=== PATIENT | male | born 1950 | race Caucasian/White ===

== ENCOUNTER 2018-03-16 11:58 | Outpatient (REF) | payer MEDICARE, BC, SELFPAY ==
[2018-03-16 22:48] LABS: Cholesterol 233 mg/dL (50-200); HDL Cholesterol 92 mg/dL (40-60); LDL CHOLESTEROL 129 mg/dL (<100); Triglyceride 80 mg/dL (30-150)
[2018-03-18 11:26] LABS: Hepatitis C Ab w Rflx HCV PCR Negative (NEGAT)
== END 2018-03-16 12:18 ==
LOC: NCHCN 11:58
PROVIDERS: PCP Nurse Practitioner Family; Visit Provider Nurse Practitioner Family
DX: E78.5 Hyperlipidemia, unspecified (principal); G43.109 Migraine with aura, not intractable, without status migrainosus; Z11.59 Encounter for screening for other viral diseases
CPT/HCPCS: 80061; 83721; 86803

== ENCOUNTER 2018-03-25 01:05 | Outpatient (CLI) | payer MEDICARE, BC, SELFPAY ==
--- NOTE | 2018-03-25 07:07 | DI.US_ITS ---
SYMPTOM/DIAGNOSIS: CARDIOVASCULAR SCREENING, Z13.6, ? AAA AORTA ULTRASOUND: There is no evidence of an aortic aneurysm. The maximal AP diameter of the aorta is 2.6 cm. proximally. The maximal transverse diameter of the aorta is 2.4 cm. The AP diameter of the right iliac is 1.1 cm. and of the left iliac is 1.3 cm. SUMMARY: No evidence of an abdominal aortic aneurysm.
== END 2018-03-25 01:25 ==
PROVIDERS: PCP Nurse Practitioner Family; Visit Provider Nurse Practitioner Family
DX: Z13.6 Encounter for screening for cardiovascular disorders (principal); E78.5 Hyperlipidemia, unspecified
CPT/HCPCS: 76706

== ENCOUNTER 2020-03-22 10:20 | Outpatient (REF) | payer MEDICARE, BC, SELFPAY ==
[2020-03-22 14:07] LABS: ALT 33 U/L (16-63); AST 24 U/L (15-37); Albumin 4.1 g/dL (3.4-5.0); Alkaline Phosphatase 61 U/L (46-116); Anion Gap 7.5 mmol/L (3-11); BUN 20 mg/dL (7-18); Bilirubin, Total 0.8 mg/dL (0.2-1.0); CO2 30.5 mmol/L (21.0-32.0); CREATININE 1.07 mg/dL (0.70-1.30); Calcium 8.9 mg/dL (8.5-10.1); Calculated LDL 125 mg/dL (<100); Chloride 105 mmol/L (98-107); Cholesterol 225 mg/dL (<200); Glucose 90 mg/dL (74-106); HDL Cholesterol 79 mg/dL (40-60); Potassium 4.1 mmol/L (3.5-5.1); Sodium 143 mmol/L (136-145); Total Protein 6.8 g/dL (6.4-8.2); Triglyceride 106 mg/dL (<150)
[2020-03-23 04:49] LABS: Vitamin D 25 Total 58.8 ng/ml (30-100)
== END 2020-03-22 10:40 ==
LOC: NCHCN 10:20
PROVIDERS: PCP Nurse Practitioner Family; Visit Provider Nurse Practitioner Family
DX: E55.9 Vitamin D deficiency, unspecified (principal); E78.5 Hyperlipidemia, unspecified
CPT/HCPCS: 80053; 80061; 82306

== ENCOUNTER 2021-04-17 13:07 | Outpatient (REF) | payer MEDICARE, BC, SELFPAY ==
[2021-04-17 15:06] LABS: Calculated LDL 163 mg/dL (<100); Cholesterol 254 mg/dL (<200); HDL Cholesterol 73 mg/dL (40-60); Triglyceride 90 mg/dL (<150)
[2021-04-18 18:20] LABS: PSA, Screening 8.6 ng/mL (0.0-4.5)
== END 2021-04-17 13:08 | disposition home or self-care (01) ==
LOC: NCHCN 13:07
PROVIDERS: PCP Nurse Practitioner Family; Visit Provider Nurse Practitioner Family
DX: E78.5 Hyperlipidemia, unspecified (principal); Z00.00 Encounter for general adult medical examination without abnormal findings; Z12.5 Encounter for screening for malignant neoplasm of prostate
CPT/HCPCS: 80061; 84153

== ENCOUNTER 2021-04-30 01:07 | Outpatient (CLI) | payer MEDICARE, BC, SELFPAY ==
--- NOTE | 2021-04-30 | DI.US_ITS ---
Exam(s) US BREAST LT LIMITED EXAM: US BREAST LT LIMITED CLINICAL HISTORY: SOFT TISSUE MASS M79.9 TECHNIQUE: Ultrasound left breast performed using standard protocol. COMPARISON: No exams were available for comparison FINDINGS: The area of the palpable abnormality in the retroareolar region was scanned. There is an ovoid hypoe choic area measuring 2.6 x 0.6 by 2.0 cm which shows some vascularity. There is no shadowing. There is no evidence of a cyst.. IMPRESSION: Hypoechoic lesion in the subareolar region could represent focal gynecomastia versus posttraumatic in duration versus mass. Clinical correlation recommended. Mammography should be considered for furthe r evaluation. BI-RADS Category 0 - Assessment Incomplete: Need additional imaging evaluation DATA REPOSITORY:
== END 2021-04-30 01:27 ==
PROVIDERS: PCP Nurse Practitioner Family; Visit Provider Nurse Practitioner Family
DX: R92.8 Other abnormal and inconclusive findings on diagnostic imaging of breast (principal); M79.89 Other specified soft tissue disorders; N64.89 Other specified disorders of breast
CPT/HCPCS: 76642

== ENCOUNTER → 2021-05-04 09:15 | Outpatient (BNVA) | payer MEDICARE, BC, SELFPAY | PROVIDERS: PCP Nurse Practitioner Family; Referring Provider Nurse Practitioner Family; Visit Provider Surgery | DX: N63.20 Unspecified lump in the left breast, unspecified quadrant (principal) | CPT/HCPCS: 99203 ==

== ENCOUNTER 2021-05-07 04:13 | Outpatient (CLI) | payer MEDICARE, BC, SELFPAY ==
[2021-05-07 09:36] LABS: Source Nasal/Nares
[2021-05-07 12:56] LABS: COVID-19 PCR Negative (Negative)
== END 2021-05-07 04:14 | disposition home or self-care (01) ==
LOC: LBO 04:13
PROVIDERS: PCP Nurse Practitioner Family; Visit Provider Surgery
DX: Z20.822 Contact with and (suspected) exposure to COVID-19 (principal); Z01.818 Encounter for other preprocedural examination
CPT/HCPCS: 87635; U0005

== ENCOUNTER 2021-05-09 07:28 | Day surgery (SDC) | payer MEDICARE, BC, SELFPAY ==
--- NOTE | 2021-05-09 06:34 | W.PM.OP ---
Date of service: 05/09/21 Time of Service: : Operative Note Operative Note DATE OF PROCEDURE: 05/09/21 PRE-OP DIAGNOSIS: Left Breast mass POST-OP DIAGNOSIS: same PROCEDURE: Excisional Left breast biopsy SURGEON: Carmen Garcia SETUP OPERATOR: Joanne Gong ANESTHESIA TYPE: Local By Surgeon and General:No Airway Refer to Anesthesia Record PATHOLOGY: other (Breast mass, single suture medial and double suture superior) COMPLICATIONS: None Patient was transported to: same day Patient's condition: stable Indications: Mr. Xiong is a pleasant 70-year-old gentleman with a left breast mass which is hypoechoic but has some vascularity.? On ultrasound it measures 2.6 x 0.6 x 2 cm.? On exam it is well-circumscribed and mobile.? I suspect this is going to be an area of gynecomastia versus a fibroadenoma.? Due to the vascularity I do feel that further testing with either core needle biopsy or excisional biopsy is warranted.? I did discuss with Fortino and his the core needle biopsy versus the excisional biopsy.? If we do an excisional biopsy he may require a second surgery if the pathology comes back as breast cancer.? I would then need to do a sentinel lymph node biopsy and potentially remove a little bit more tissue.? After discussing both options with him and his and reviewing the risks and benefits of both a core needle biopsy versus an excisional biopsy he would like to proceed with excisional biopsy. Risks, benefits, complications were reviewed with him.? Complications include but are not limited to bleeding, infection, injury injury to underlying muscle, need for further surgery, wound dehiscence, and adverse reactions to the medications.? His questions were answered to his satisfaction and he wished to proceed.? No guarantees were given or implied. Proceed with breast excisional biopsy in the operating room. Findings: retroareolar lesion- specimen size 5 x 5.5 cm Procedure Description: After informed consent was obtained from the patient and he was taken back to the operating room and placed in the supine position on the operating room table. The patient was then placed under General sedation. At this point a timeout was done. The patient's name, date of , allergies to medications, procedure to be done, site of surgery and antibiotic prophylaxis were all reviewed. Fire risk was assessed. The Breast was prepped with Chlorhexidine and exparel mixed with 0.25% Bupivocaine was injected into the dermis and subcutaneous tissue. A 2.5 cm incision was made with a 15 blade. Dissection was done with cautery around the lesion and down to the pectoralis muscle. Once the breast tissue was completely dissected it was marked with a single suture at medial and a double suture at superior. The specimen was placed in formalin for pathology. The cavity was irrigated with some normal saline and dried. Small areas of bleeding were identified and these were stopped using cautery. The cavity was inspected again and no bleeding was noted. The incision was then closed with 3-0 Vicryl interrupted subdermal sutures. The dermis was closed with a continuous 4-0 Vicryl suture. The skin was cleaned and dried and skin affix was applied. Once the skin affix was dry a pressure dressing was applied. The patient was slowly woken up and taken back to [facility] in stable condition. Sponge, instruments and needles were correct at the end of the case x2. There were no immediate complications.
--- NOTE | 2021-05-09 06:37 | W.PM.DSUDISC ---
Discharge Plan Disposition Patient Disposition: HOME Condition: Good Discharge Details Reason For Visit: Left Breast mass Attending Provider: Carmen Garcia Primary Care Provider: Shavonne Turner Home Meds and New Rx's Prescriptions: New tramadol 50 mg tablet 50 mg PO Q6H PRNQty: 14 0RF Continued multivitamin 1 EACH capsule 1 ea PO DAILY 0RF Vitamin D3 Complete 1 EACH tablet 1 ea PO DAILY 0RF lutein 20 mg Capsule 20 mg PO DAILY 0RF vvfqctn-rcsa-lzvit-oreg-capryl 100 mg-150 mg- 50 mg-150 mg Capsule 1 cap PO QDAY 0RF Discharge Instructions Additional Instructions: Activity at Home after surgery: 1. As tolerated Diet, Nutrition, & wound healin. Avoid alcohol until after you are recovered from your surgery 2. Make sure to eat plenty of lean protein (meat, fish, eggs, cottage cheese, beans) 3. Eat a variety of fruits and vegetables. Eat plenty of high fiber foods to avoid constipation. 4. Drink plenty of liquids to stay hydrated and avoid constipation Pain Medications: 1. Tylenol 650mg every 6 hours as needed and Ibuprofen 600 mg every 6 hours as needed. You may alternate between the 2 medications every 3 hours 2. If a narcotic has been prescribed take as directed only for breakthrough pain For Constipation: 1. Take Milk of Magnesia or MiraLax as needed for constipation Other: 1. You may shower daily. Do not scrub the incisions 2. Do not soak the incisions for 1 week 3. You may alternate ice and heat as needed for pain and swelling Wound Care: 1. remove dressing in 24 hours 2. Keep the incisions clean and dry Please call our office if you develop: 1. Fevers >101.5 2. Nausea or Vomiting 3. Worsening pain 4. Redness and thick discharge from the wounds If after hours please call the Hospital at and ask to speak to the on-call surgeon Referrals: Carmen Garcia MD [ [facility] STAFF PHYSICIAN] - 05/25/21 10:30 am Activity:: Activity as Tolerated Remove Dressings/Wound Care:: 24 hours Shower/Bathe:: 24 hours Diet:: As Tolerated Discharge Orders Discharge Orders: Discharge Order (Routine); Ordered 05/09/21 Ordered By: Carmen Garcia
[2021-05-09 07:47] VITALS: BP 119/69; PULSE 72; RESP 16; TEMP 36.5; O2SAT 99
[2021-05-09] MEDS: Acetaminophen 500 MG TAB 1000 MG PO (08:14)
[2021-05-09] MEDS: Lactated Ringers 1,000 ML 80 ML IV (08:15)
[2021-05-09] MEDS: Celecoxib 200 MG CAP PO (08:15)
--- NOTE | 2021-05-09 08:24 | W.ANESPRE ---
General Info Date of Service Date Performed: 05/09/21 Height: 5 ft 10 in Weight: 59.8 kg Body Mass Index (BMI): 18.9 Surgical Procedure: Operation Date: 05/09/21 09:25 Proposed Procedure Side Surgeon p Excisional Biopsy of Lt Breast Mass Left Carmen Garcia MD Meds Allergies and Home Medications Allergies Allergy/AdvReac Type Severity Reaction Status Date / Time No Known Allergies Allergy Verified 05/09/21 07:47 Home Medication Medication Instructions Recorded Vitamin D3 Complete 18 mg iron-800 1 ea PO DAILY NS 08/18/17 mcg-150 mg tablet (pp-lb-ogxb-FA-herbal cmplx#[id number]) multivitamin 1 ea PO DAILY NS 08/18/17 lutein 20 mg capsule 20 mg PO DAILY 05/07/21 tumeric 100 mg-macey 150 mg-olive 1 cap PO QDAY 05/09/21 50 mg-oreg 150 mg-caprylate capsule Current Visit Medications: Current Medications Generic Name Dose Route Start Last Admin Trade Name Freq PRN Reason Stop Dose Admin Acetaminophen 1,000 mg 05/09/21 06:00 05/09/21 08:14 Acetaminophen 500 Mg Tab PO 05/09/21 23:59 1,000 mg PREOP LISA Administration Celecoxib 200 mg 05/09/21 06:00 05/09/21 08:15 Celecoxib 200 Mg Cap PO 05/09/21 23:59 200 mg PREOP LISA Administration Ringer's Solution 1,000 mls @ 80 mls/hr 05/09/21 06:00 05/09/21 08:15 IV 05/31/21 23:59 80 mls/hr INFUSION LISA Administration Cefazolin Sodium/Dextrose 2 gm in 50 mls @ 100 mls/hr 05/09/21 06:00 Ancef Duplex IVPB 05/09/21 23:59 PREOP LISA Ondansetron HCl 4 mg/ Sodium 52 mls @ 200 mls/hr 05/09/21 06:38 Chloride IVPB Q6H PRN PRN IV Miscellaneous Supplies 1 each 05/09/21 06:00 Iv Access IV 05/31/21 23:59 DIRECTED LISA Ibuprofen 600 mg 05/09/21 06:38 Ibuprofen 600 Mg Tab PO Q6H PRN PRN Pain Sodium Chloride 0 ml 05/09/21 06:00 Normal Saline Flush 10 Ml Syr IV 05/31/21 23:59 PRN PRN Sodium Chloride 0 ml 05/09/21 06:00 Normal Saline 10 Ml Vial IJ 05/31/21 23:59 DIRECTED PRN Sterile Water 0 ml 05/09/21 06:00 Water,Injection,Sterile 10 Ml Vial IJ 05/31/21 23:59 DIRECTED PRN PFSH Active Problems Active Problems: Problem Status Onset Code Breast mass N63.0 Medical History Medical History Back pain Bruxism Dyspepsia Hyperlipidemia Hyperplastic colon polyp Hyperplastic polyp of large intestine Leg cramps Migraine headache with aura Nightmares Osteoarthritis of hands, bilateral Plantar wart, right foot Sinus congestion Vitamin D insufficiency Surgical History Surgical History Colonoscopy - MAC (08/22/17) H/O vasectomy Tonsillectomy and adenoidectomy Tobacco Smoking/Tobacco Use Status: Never Alcohol Alcohol Intake: current Alcohol intake frequency: 0-2 drinks per day Substance Use Substance use: Never Substance use type: does not use Vital Signs and Lab Results Vital Signs Most Recent Vital Signs in EMR: Most Recent Vital Signs Temp Pulse Resp BP Pulse Ox 36.5 C 72 16 119/69 99 05/09/21 07:47 05/09/21 07:47 05/09/21 07:47 05/09/21 07:47 05/09/21 07:47 Lab Results Blood Type / Crossmatch: No Data to Display Complete Blood Count: No Data to Display Complete Metabolic Panel: No Data to Display Liver Function Panel: No Data to Display Coagulation Panel: No Data to Display Cardiac Panel: No Data to Display Arterial Blood Gas: No Data to Display Venous Blood Gas: No Data to Display Pancreas Panel: No Data to Display Thyroid Panel: No Data to Display Infectious Disease: Coronavirus (COVID-19)(PCR) Negative (Negative) 05/07/21 08:58 05/07/21 Coronavirus 2019 Source Nasal/Nares 05/07/21 08:58 05/07/21 Blood Cultures: No Data to Display Toxicology Panel: No Data to Display Anesthesia Assessment and Plan Anesthesia History Personal History: No History of Anesthesia Complications Family History: No Family History of Anesthesia Complications Exercise Tolerance Exercise Tolerance: Metabolic Equivalents>4 Pertinent Negatives Pertinent Negatives: No Symptoms of GERD, No Major Cardiovascular Symptoms or Complaints, No Major Pulmonary Symptoms or Complaints and No History of CVA/TIA Cardiac & Pulmonary Exam Cardiac Exam: Normal S1/S2 Heart Sounds Pulmonary Exam: Clear Bilateral Breath Sounds Implantable Cardiac Device Does patient have a Pacemaker or an ICD?: No Airway Exam Known Difficult Airway: No Mallampati Class: 4 Mouth Opening: Normal (> 3cm) Thyromental Distance: Greater than 3 cm Neck Range of Motion: Full ROM Neck Circumference: Normal Teeth Condition: Normal Dentition ASA Classification ASA Score: ASA 2 Emergency Case?: No NPO Status NPO Status: NPO Clears >2 hours, Solids >8 hours Anesthesia Plan Resuscitation Status: Full Code Anesthesia Technique: General Anesthesia Airway Planned: Natural Airway Monitors Used: Standard Monitors
[2021-05-09 09:30] VITALS: BMI 18.9
[2021-05-09] MEDS: ceFAZolin 2 GM/50 ML BAG IVPB (09:52)
--- NOTE | 2021-05-09 10:12 | BREAST_PTH ---
PATIENT: Fortino Noguera LOC: [facility] U#:[id number] AGE/SX: 70/M ROOM: RE05/09/[address]: Carmen Garcia MD : 1950 BED: DIS: 05/09/2021 SPEC #: [id number] RECD: 05/09/21 12:43 STATUS: MIKE REJenni #: [id number] CELE: 05/09/21 10:[address]: Carmen Garcia DEPT: Surgical Specimen RECD BY: Cynthia Norman ENTERED: 05/09/21 12:44 SP TYPE: Breast OTHR DR: Shavonne Turner Tissues: 1 - BREAST INCISION/EXCISION Procedures: GROSS AND MICRO LEVEL 5 Comments: [id number]
[2021-05-09] MEDS: Bupivacaine 0.25% Pres-Free 30 ML VIAL (10:17)
[2021-05-09] MEDS: Bupivacaine LIPOSOME/PF 133 MG/10 ML VIAL IJ (10:17)
[2021-05-09 10:49] VITALS: BP 121/80; PULSE 68; RESP 16; TEMP 36.1; O2SAT 97
--- NOTE | 2021-05-09 10:59 | W.ANESPOSTOP ---
Postoperative Evaluation Date, Time and Location Date Performed: 05/09/21 Time Performed: 10:59 Patient Location: Day Surgery Unit Vital Signs Most Recent Imported Vital Signs: Most Recent Vital Signs Temp Pulse Resp BP Pulse Ox 36.1 C L 68 16 121/80 97 05/09/21 10:49 05/09/21 10:49 05/09/21 10:49 05/09/21 10:49 05/09/21 10:49 Pain Score Most Recent Pain Score: Most Recent Pain Score Pain Level 0 05/09/21 10:49 Assessment Mental Status: Awake (Alert & Oriented to Patient Baseline) Airway and Respiratory Function: Patent airway with normal (patient baseline) respiratory exam Cardiovascular Function: Hemodynamically Stable Hydration Status: Adequately Hydrated Nausea & Vomiting: No Nausea or Vomiting Pain: Pt. Denies Any Pain Peripheral Nerve Block: Patient did not receive a nerve block
[2021-05-09 11:16] VITALS: BP 110/62; PULSE 58; RESP 16; TEMP 36.3; O2SAT 99
== END 2021-05-09 11:48 | disposition home or self-care (01) ==
LOC: SUR 07:29
PROVIDERS: PCP Nurse Practitioner Family; Visit Provider Surgery
PROC: (CPT 19120; principal; 2021-05-09 09:15)
DX: E78.5 Hyperlipidemia, unspecified; E55.9 Vitamin D deficiency, unspecified; F51.5 Nightmare disorder; M19.042 Primary osteoarthritis, left hand; M19.041 Primary osteoarthritis, right hand; Z86.010 Personal history of colon polyps; N62 Hypertrophy of breast
CPT/HCPCS: 19301; 88307; J0690; J1100; J1885; J2001; J2250; J2405

== ENCOUNTER → 2021-05-25 10:33 | Outpatient (BNVA) | payer MEDICARE, BC, SELFPAY | PROVIDERS: PCP Nurse Practitioner Family; Referring Provider Nurse Practitioner Family; Visit Provider Surgery | DX: Z90.12 Acquired absence of left breast and nipple (principal); Z48.817 Encounter for surgical aftercare following surgery on the skin and subcutaneous tissue ==

== ENCOUNTER 2021-07-11 15:06 | Outpatient (REF) | payer MEDICARE, BC, SELFPAY ==
[2021-07-11 22:41] LABS: PSA, Diagnostic 8.7 ng/mL (<=4.5)
== END 2021-07-11 15:07 | disposition home or self-care (01) ==
LOC: NCHCN 15:06
PROVIDERS: PCP Nurse Practitioner Family; Visit Provider Nurse Practitioner Family
DX: R97.20 Elevated prostate specific antigen [PSA] (principal)
CPT/HCPCS: 84153

== ENCOUNTER → 2021-07-16 12:51 | Outpatient (BNVA) | payer MEDICARE, BC, SELFPAY | PROVIDERS: PCP Nurse Practitioner Family; Referring Provider Nurse Practitioner Family; Visit Provider Nurse Practitioner Gerontology | DX: N40.2 Nodular prostate without lower urinary tract symptoms (principal); R97.20 Elevated prostate specific antigen [PSA] | CPT/HCPCS: 99215 ==

== ENCOUNTER → 2021-08-03 00:27 | Outpatient (CLI) | payer MEDICARE, BC, SELFPAY ==
--- NOTE | 2021-08-03 07:30 | DI.US_ITS ---
Exam(s) US PROSTATE BIOPSY EXAM: prostate nodule/elevated PSA,n40.2 COMPARISON: No exams were available for comparison TECHNIQUE: Ultrasound performed using standard protocol. FINDINGS: Sonography was provided for Dr. Knox during the performance of a ultrasound-guided transrectal pros strickland biopsy. Please refer to the procedure report for complete details. DATA REPOSITORY:
--- NOTE | 2021-08-03 09:15 | PROST_PTH ---
PATIENT: Fortino Noguera LOC: [facility] U#:[id number] AGE/SX: 74/M ROOM: RE08/03/[address]: Ria Leach DNP : 1950 BED: DIS: SPEC #: [id number] RECD: 08/03/21 12:37 STATUS: MIKE BENAVIDES #: [id number] CELE: 08/03/21 09:[address]: Ria Leach DEPT: Surgical Specimen RECD BY: Cynthia Norman ENTERED: 08/03/21 12:39 SP TYPE: PROST OTHR DR: Shavonne Turner Tissues: 1 - PROSTATE NEEDLE BIOPSY 2 - PROSTATE NEEDLE BIOPSY 3 - PROSTATE NEEDLE BIOPSY 4 - PROSTATE NEEDLE BIOPSY 5 - PROSTATE NEEDLE BIOPSY 6 - PROSTATE NEEDLE BIOPSY 7 - PROSTATE NEEDLE BIOPSY 8 - PROSTATE NEEDLE BIOPSY 9 - PROSTATE NEEDLE BIOPSY 10 - PROSTATE NEEDLE BIOPSY 11 - PROSTATE NEEDLE BIOPSY 12 - PROSTATE NEEDLE BIOPSY Procedures: GROSS AND MICRO LEVEL 4 Comments: [id number]
--- NOTE | 2021-08-03 09:29 | W.PM.OP ---
Date of service: 08/03/21 Time of Service: 08:29 Operative Note Operative Note DATE OF PROCEDURE: 08/03/21 PRE-OP DIAGNOSIS: Elevated PSA POST-OP DIAGNOSIS: same Abnormal prostate exam PROCEDURE: Transrectal ultrasound guided biopsy of the prostate SURGEON: Venu Knox ANESTHESIA TYPE: Local By Surgeon Refer to Anesthesia Record ESTIMATED BLOOD LOSS: 5 PATHOLOGY: other (12 laterally directed prostate biopsies) Implants: None Indications: This is a 70-year-old gentleman who was identified as having an elevated PSA of 8.7 and an abnormal prostate exam. We found a firm area on the left base of the prostate. He presents for ultrasound-guided biopsy Findings: Prostate volume 35 cc Procedure Description: The patient was given an antibiotic and mechanical bowel prep. He was brought to the radiology suite on 08/03/2021. Transrectal imaging of the prostate was performed using a variable megahertz transducer. The prostate was imaged in transverse and longitudinal planes. The prostatic volume was calculated at 35 cc. There were a few calcifications present in the transition zone. No specific hypoechoic areas were found in the peripheral zone. A periprostatic nerve block was then performed using 1% Xylocaine without epinephrine. A total of 12 laterally directed biopsies were taken. Each biopsy was labeled and sent to pathology for permanent section. The patient tolerated the procedure well with no complications.
== END ==
PROVIDERS: PCP Nurse Practitioner Family; Visit Provider Nurse Practitioner Gerontology
DX: C61 Malignant neoplasm of prostate (principal); R97.20 Elevated prostate specific antigen [PSA]
CPT/HCPCS: 55700; 76942; 88305

== ENCOUNTER → 2021-08-17 11:01 | Outpatient (BNVA) | payer MEDICARE, BC, SELFPAY | PROVIDERS: PCP Nurse Practitioner Family; Referring Provider Nurse Practitioner Family; Visit Provider Urology | DX: C61 Malignant neoplasm of prostate (principal) | CPT/HCPCS: 99215 ==

== ENCOUNTER → 2021-08-31 00:11 | Outpatient (CLI) | payer MEDICARE, BC, SELFPAY ==
--- NOTE | 2021-08-31 07:15 | DI.NM_ITS ---
Exam(s) NM BONE SCAN WHOLE BODY GRP EXAM: NM BONE SCAN WHOLE BODY GRP CLINICAL HISTORY: r/o mets,prostate ca,c61. TECHNIQUE: Injected Dose: 26 mCi Tc-99m MDP Delayed Images: 2-3 hours. COMPARISON: No exams were available for comparison FINDINGS: There is no abnormal uptake evident in the spine spinal column and rib cages nor in the sternum nor i n the shoulder girdles nor in the skull. Mild symmetrical increased uptake seen both sides pelvis is doubtful metastatic disease, given the symmetrical distribution which appears to be at the anterior superior aspect of both acetabuli. There is some uptake seen in the left wrist at the 1st carpometacarpal joint, consistent with degener ative change. Similar findings are not seen in the right wrist. Mild uptake in the knees is probabl y degenerative; less likely metastatic. There is no abnormal uptake in the feet. IMPRESSION: 1. Findings as above which are doubtful for metastatic osseous disease, given the distribution. Josefa raymond, recommend plain films of the pelvis. DATA REPOSITORY:
== END ==
PROVIDERS: PCP Nurse Practitioner Family; Visit Provider Urology
DX: C61 Malignant neoplasm of prostate (principal)
CPT/HCPCS: 78306

== ENCOUNTER → 2021-09-28 10:54 | Outpatient (BNVA) | payer MEDICARE, BC, SELFPAY | PROVIDERS: PCP Nurse Practitioner Family; Referring Provider Nurse Practitioner Family; Visit Provider Urology | DX: C61 Malignant neoplasm of prostate (principal) | CPT/HCPCS: 99215 ==

== ENCOUNTER 2022-05-16 01:50 | Outpatient (CLI) | payer MEDICARE, BC, SELFPAY ==
[2022-05-22 14:40] LABS: PSA, Ultrasensitive 0.28 ng/mL (<= 4.5)
[2022-05-22 16:51] LABS: Testosterone, Total <7.0 ng/dL (240-950)
== END 2022-05-16 01:51 | disposition home or self-care (01) ==
LOC: LBO 01:50
PROVIDERS: PCP Nurse Practitioner Family; Visit Provider Radiology Radiation Oncology
DX: C61 Malignant neoplasm of prostate (principal)
CPT/HCPCS: 36415; 84153; 84403

== ENCOUNTER 2022-09-23 04:41 | Outpatient (CLI) | payer MEDICARE, BC, SELFPAY ==
[2022-09-25 10:07] LABS: PSA, Ultrasensitive 0.39 ng/mL (<= 6.5)
[2022-09-27 00:52] LABS: Testosterone, Total 201 ng/dL (240-950)
== END 2022-09-23 04:42 | disposition home or self-care (01) ==
LOC: LBO 04:42
PROVIDERS: PCP Nurse Practitioner Family; Visit Provider Radiology Radiation Oncology
DX: C61 Malignant neoplasm of prostate (principal)
CPT/HCPCS: 36415; 84153; 84403

== ENCOUNTER → 2022-12-16 03:36 | Outpatient (CLI) | payer MEDICARE, BC, SELFPAY ==
--- NOTE | 2022-12-16 | DI.US_ITS ---
Exam(s) US BREAST RT COMPLETE MAMMO DIAGNOSTIC BI EXAM: MAMMO DIAGNOSTIC BI and U/S breast RT complete CLINICAL HISTORY: RT BREAST MASS, N63.0,MALE GYNECOMASTIA,N62. TECHNIQUE: Craniocaudal and mediolateral oblique Full Field Digital Mammography views with Computer Aided Diagnosis followed by Tomosynthesis and right breast ultrasound. COMPARISON: No priors for comparison. FINDINGS: Mammography/Tomosynthesis: Masses/Architectural Distortion: There is breast tissue seen in the retroareolar region of the left b reast most consistent with gynecomastia. No solid mass is seen. No areas of architectural distortio n are present. Microcalcifictions: No suspicious pleomorphic-type are seen. Skin Thickening/Nipple Retraction: None. Complete right breast US: Echotexture: Soft tissue seen in the retroareolar region of the right breast consistent with gynecoma stia. Shadowing: No suspicious foci. Cyst: None. Solid lesions: None seen. Ductal dilation: None. IMPRESSION: 1. No evidence of malignancy is noted. Findings in the right breast are consistent with gynecomastia. 2. Follow-up as clinically appropriate. 3. The findings were discussed with the patient on the date of the examination. BI-RADS Category 2 - Benign Findings Breast Density - Category B - Scattered areas of fibroglandular density Breast density Category C or D implies that the patient has dense breast tissue. Dense breast tissue can make it harder to find cancer on a mammogram. Dense breast tissue is also associated with an incr eased risk of breast cancer. This information about the result of the mammogram report was provided to the patient to raise their awareness. Use this report when you speak with the patient about their risks for breast cancer, which includes their family history. At that time, you may recommend additional screening tests (Ultrasoun d or MRI) as these tests may add significant information. A negative radiographic report should not delay biopsy if a dominant or clinically suspicious mass is present. Up to ten percent of cancers are not identified on mammography. A negative report may reinforce clinical impression. Adenosis and dense breasts may obscure an underlying neoplasm. False positive reports average 6 to 10%. Patient will receive a letter notifying them of these results.
== END ==
PROVIDERS: PCP Nurse Practitioner Family; Visit Provider Nurse Practitioner Family
DX: Z12.31 Encounter for screening mammogram for malignant neoplasm of breast (principal)
CPT/HCPCS: 76642; 77062; 77066; G0279

== ENCOUNTER → 2023-03-19 10:03 | Outpatient (BNVA) | payer MEDICARE, BC, SELFPAY | PROVIDERS: PCP Nurse Practitioner Family; Referring Provider Nurse Practitioner Family; Visit Provider Surgery | DX: N63.11 Unspecified lump in the right breast, upper outer quadrant (principal) | CPT/HCPCS: 99213 ==

== ENCOUNTER 2023-04-17 04:15 | Outpatient (CLI) | payer MEDICARE, BC, SELFPAY ==
[2023-04-18 17:52] LABS: PSA, Ultrasensitive 0.23 ng/mL (<= 6.5)
[2023-04-22 12:27] LABS: Testosterone, Total 251 ng/dL (240-950)
== END 2023-04-17 04:16 | disposition home or self-care (01) ==
LOC: LBO 04:15
PROVIDERS: PCP Nurse Practitioner Family; Visit Provider Radiology Radiation Oncology
DX: C61 Malignant neoplasm of prostate (principal)
CPT/HCPCS: 36415; 84153; 84403

== ENCOUNTER 2023-08-06 05:24 | Outpatient (CLI) | payer MEDICARE, BC, SELFPAY ==
[2023-08-06 12:12] LABS: Calculated LDL 123 mg/dL (<100); Cholesterol 225 mg/dL (<200); HDL Cholesterol 91 mg/dL (40-60); Triglyceride 57 mg/dL (<150)
== END 2023-08-06 05:25 | disposition home or self-care (01) ==
LOC: LBO 05:24
PROVIDERS: PCP Nurse Practitioner Family; Visit Provider Nurse Practitioner Family
DX: E78.5 Hyperlipidemia, unspecified (principal)
CPT/HCPCS: 36415; 80061

== ENCOUNTER 2023-10-27 03:09 | Outpatient (CLI) | payer MEDICARE, BC, SELFPAY ==
[2023-10-30 15:50] LABS: PSA, Ultrasensitive 0.16 ng/mL (<= 6.5)
[2023-10-31 14:14] LABS: Testosterone, Total 224 ng/dL (240-950)
== END 2023-10-27 03:10 | disposition home or self-care (01) ==
LOC: LBO 03:09
PROVIDERS: PCP Nurse Practitioner Family; Visit Provider Nurse Practitioner
DX: C61 Malignant neoplasm of prostate (principal)
CPT/HCPCS: 36415; 84153; 84403

== ENCOUNTER 2024-05-06 02:57 | Outpatient (CLI) | payer MEDICARE, BC, SELFPAY ==
[2024-05-07 18:20] LABS: PSA, Ultrasensitive 0.22 ng/mL (<= 6.5)
[2024-05-12 14:28] LABS: Testosterone, Total 338 ng/dL (240-950)
== END 2024-05-06 02:58 | disposition home or self-care (01) ==
PROVIDERS: PCP Nurse Practitioner Family; Visit Provider Physician Assistant
DX: C61 Malignant neoplasm of prostate (principal)
CPT/HCPCS: 36415; 84153; 84403

== ENCOUNTER 2024-08-04 11:33 | Outpatient (REF) | payer MEDICARE, BC, SELFPAY ==
[2024-08-04 15:00] LABS: HCT 43.2 % (40.0-50.0); HGB 14.1 g/dL (13.5-17.5); MCH 31.1 pg (27.0-33.0); MCHC 32.6 % (32.0-36.0); MCV 95 fL (80-95); MPV 10.8 fL (8.0-11.0); Platelet Count 235 10^3/uL (130-400); RBC 4.54 10^6/uL (4.36-5.78); RDW 12.3 % (11.8-14.1); RDW-SD 43.1 fL; WBC 3.61 10^3/uL (4.4-10.8)
[2024-08-04 15:23] LABS: Calculated LDL 126 mg/dL (<100); Cholesterol 224 mg/dL (<200); HDL Cholesterol 84 mg/dL (>or=40); Triglyceride 73 mg/dL (<150)
== END 2024-08-04 11:34 | disposition home or self-care (01) ==
LOC: NCHCN 11:33
PROVIDERS: PCP Nurse Practitioner Family; Visit Provider Nurse Practitioner Family
DX: Z00.00 Encounter for general adult medical examination without abnormal findings (principal)
CPT/HCPCS: 80061; 85027

== ENCOUNTER 2024-11-04 12:33 | Outpatient (CLI) | payer MEDICARE, BC, SELFPAY | END 2024-11-04 12:34 | disposition home or self-care (01) | LOC: LBO 12:34 | PROVIDERS: PCP Nurse Practitioner Family; Visit Provider Physician Assistant | DX: C61 Malignant neoplasm of prostate (principal) | CPT/HCPCS: 36415; 84153 ==

== ENCOUNTER 2024-11-08 11:06 | Outpatient (REF) | payer MEDICARE, BC, SELFPAY ==
[2024-11-08 14:37] LABS: Abs Immature Grans 0.01 10^3/uL (0.0-0.06); HCT 44.1 % (40.0-50.0); HGB 14.9 g/dL (13.5-17.5); Immature Grans % 0.2 %; MCH 32.0 pg (27.0-33.0); MCHC 33.8 % (32.0-36.0); MCV 95 fL (80-95); MPV 10.1 fL (8.0-11.0); Platelet Count 233 10^3/uL (130-400); RBC 4.66 10^6/uL (4.36-5.78); RDW 12.3 % (11.8-14.1); RDW-SD 43.1 fL; WBC 4.20 10^3/uL (4.4-10.8)
== END 2024-11-08 11:07 | disposition home or self-care (01) ==
LOC: NCHCN 11:06
PROVIDERS: PCP Nurse Practitioner Family; Visit Provider Nurse Practitioner Family
DX: D72.819 Decreased white blood cell count, unspecified (principal)
CPT/HCPCS: 85025